=== PATIENT | female | born 1990 | race Caucasian/White ===

== ENCOUNTER 2016-10-22 12:30 | Emergency (ER) | payer OTHER ==
[~2016-10-22] VITALS: Ht 162.6 cm; Wt 95.3 kg
[2016-10-22 13:02] LABS: BILIRUBIN,URINE NEGATIVE (NEG); GLUCOSE,URINE NEGATIVE (NEG); NITRITE,URINE NEGATIVE (NEG); PROTEIN,URINE NEGATIVE (NEG-TRACE)
[2016-10-22 13:11] LABS: BACTERIA,URINE 0 /HPF (0-FEW); RBC,URINE TNTC /HPF (0-2); SQUAMOUS EPITHELIAL CELL,UR FEW /LPF
--- NOTE | 2016-10-22 13:23 | PHYS DOC ---
Past Medical History Past Medical History: No Pertinent History Past Surgical History: Other Additional Past Surgical Histo: wisdom teeth removed Alcohol Use: None Drug Use: None Adult General Chief Complaint Chief Complaint: VAGINAL BLEEDING HPI HPI Patient is a 26 year old female presenting to the emergency department for evaluation of vaginal bleeding in early . She is G1 approximate 7 weeks' based off dates and has had spotting for the past several days and her OB told her to come to the emergency department. She is following at [facility]. She denies any pain dizziness fevers chills nausea vomiting or other systemic symptoms. She thinks her blood type is B+. Review of Systems Review of Systems Constitutional: Denies fever or chills [] GI: Denies abdominal pain, nausea, vomiting, bloody stools or diarrhea [] : Denies dysuria or hematuria [] Allergies Allergies Allergies Coded Allergies Type Severity Reaction Last Updated Verified Sulfa (Sulfonamide Antibiotics) Allergy Intermediate hives 07/28/15 Yes Physical Exam Physical Exam Constitutional: Well developed, well nourished, no acute distress, non-toxic appearance. [] Cardiovascular:Heart rate regular rhythm, no murmur [] Lungs & Thorax: Bilateral breath sounds clear to auscultation [] Abdomen: Bowel sounds normal, soft, no tenderness, no masses, no pulsatile masses. [employer] exam deferred as patient is getting pelvic ultrasound. Current Patient Data Vital Signs Vital Signs Date Time Temp Pulse Resp B/P (MAP) Pulse Ox O2 Delivery O2 Flow Rate FiO2 10/22/16 13:58 68 18 132/81 (98) 100 Room Air 10/22/16 12:58 98.6 98.6 Lab Values Laboratory Tests Test 10/22/16 11:50 10/22/16 12:40 10/22/16 13:15 POC Urine HCG, Qualitative Hcg positive (Negative) Urine Collection Type Unknown Urine Color Yellow Urine Clarity Clear Urine pH 7.0 Urine Specific [place] 1.015 Urine Protein Negative mg/dL (NEG-TRACE) Urine Glucose (UA) Negative mg/dL (NEG) Urine Ketones (Stick) Negative mg/dL (NEG) Urine Blood Large (NEG) Urine Nitrite Negative (NEG) Urine Bilirubin Negative (NEG) Urine Urobilinogen Dipstick 1.0 mg/dL (0.2 mg/dL) Urine Leukocyte Esterase Trace (NEG) Urine RBC Tntc /HPF (0-2) Urine WBC 1-4 /HPF (0-4) Urine Squamous Epithelial Cells Few /LPF Urine Bacteria 0 /HPF (0-FEW) White Blood Count 8.4 x10^3/uL (4.0-11.0) Red Blood Count 4.47 x10^6/uL (3.50-5.40) Hemoglobin 13.4 g/dL (12.0-15.5) Hematocrit 39.3 % (36.0-47.0) Mean Corpuscular Volume 88 fL (79-100) Mean Corpuscular Hemoglobin 30 pg (25-35) Mean Corpuscular Hemoglobin Concent 34 g/dL (31-37) Red Cell Distribution Width 14.0 % (11.5-14.5) Platelet Count 336 x10^3/uL (140-400) Neutrophils (%) (Auto) 73 % (31-73) Lymphocytes (%) (Auto) 20 % (24-48) L Monocytes (%) (Auto) 6 % (0-9) Eosinophils (%) (Auto) 0 % (0-3) Basophils (%) (Auto) 1 % (0-3) Neutrophils # (Auto) 6.1 x10^3uL (1.8-7.7) Lymphocytes # (Auto) 1.7 x10^3/uL (1.0-4.8) Monocytes # (Auto) 0.5 x10^3/uL (0.0-1.1) Eosinophils # (Auto) 0.0 x10^3/uL (0.0-0.7) Basophils # (Auto) 0.0 x10^3/uL (0.0-0.2) Maternal Serum HCG Beta Subunit 4534 mIU/mL (0-6) H Sodium Level 138 mmol/L (136-145) Potassium Level 3.7 mmol/L (3.5-5.1) Chloride Level 104 mmol/L (98-107) Carbon Dioxide Level 26 mmol/L (21-32) Anion Gap 8 (6-14) Blood Urea Nitrogen 10 mg/dL (7-20) Creatinine 0.8 mg/dL (0.6-1.0) Estimated GFR (Cockcroft-Gault) 87.4 BUN/Creatinine Ratio 13 (6-20) Glucose Level 95 mg/dL (70-99) Calcium Level 9.4 mg/dL (8.5-10.1) Total Bilirubin 0.3 mg/dL (0.2-1.0) Aspartate Amino Transferase (AST) 12 U/L (15-37) L Alanine Aminotransferase (ALT) 18 U/L (14-59) Alkaline Phosphatase 66 U/L (46-116) Total Protein 7.6 g/dL (6.4-8.2) Albumin 3.4 g/dL (3.4-5.0) Albumin/Globulin Ratio 0.8 (1.0-1.7) L Laboratory Tests 10/22/16 13:15 Laboratory Tests 10/22/16 13:15 EKG EKG [] Radiology/Procedures Radiology/Procedures Obstetrical ultrasound, 10/22/2016: History: Vaginal bleeding Transabdominal and transvaginal scans were obtained. The uterus contains a small fluid collection. It contains a rounded cystic structure compatible with a yolk sac. There is an additional tiny 2 to 3 mm echogenic focus suggesting a small pole. Definite cardiac activity is not seen, however, that is not considered to be abnormal at this early stage. The size of this presumed pole suggests a gestational age of 5-6 weeks. No subchorionic hemorrhage is seen. The ovaries are of normal size. There is blood flow in both ovaries. No adnexal mass is evident. No significant free fluid is seen in the pelvis. IMPRESSION: Early intrauterine as described above. DICTATED and SIGNED BY: LESLYE DUNN MD DATE: 10/22/16 7146 Course & Med Decision Making Course & Med Decision Making Will get cold type screening pelvic ultrasound and then reassess. Patient looks well with normal vital signs and has benign workup such she'll be discharged with threatened miscarriage. Patient aware and agreeable with plan and discharged in stable condition. Dragon Disclaimer Dragon Disclaimer This electronic medical record was generated, in whole or in part, using a voice recognition dictation system. Departure Departure Impression: Primary Impression: Threatened Disposition: 01 HOME, SELF-CARE Condition: GOOD Referrals: LISA SARABIA MD (PCP) Patient Instructions: Threatened Miscarriage Additional Instructions: Obstetrical ultrasound, 10/22/2016: History: Vaginal bleeding Transabdominal and transvaginal scans were obtained. The uterus contains a small fluid collection. It contains a rounded cystic structure compatible with a yolk sac. There is an additional tiny 2 to 3 mm echogenic focus suggesting a small pole. Definite cardiac activity is not seen, however, that is not considered to be abnormal at this early stage. The size of this presumed pole suggests a gestational age of 5-6 weeks. No subchorionic hemorrhage is seen. The ovaries are of normal size. There is blood flow in both ovaries. No adnexal mass is evident. No significant free fluid is seen in the pelvis. IMPRESSION: Early intrauterine as described above. DICTATED and SIGNED BY: LESLYE DUNN MD DATE: 10/22/16 1406 HCG = [id number] VANESSA BARBER DO October 22, 2016 13:23
[2016-10-22 13:44] LABS: BASO % 1 % (0-3); EOS % 0 % (0-3); HEMATOCRIT 39.3 % (36.0-47.0); HEMOGLOBIN 13.4 g/dL (12.0-15.5); LYMPH # 1.7 x10^3/uL (1.0-4.8); LYMPH % 20 % (24-48); MEAN CORPUSCULAR HEMOGLOBIN 30 pg (25-35); MEAN CORPUSCULAR HGB CONC 34 g/dL (31-37); MEAN CORPUSCULAR VOLUME 88 fL (79-100); MONO % 6 % (0-9); NEUT % 73 % (31-73); PLATELET COUNT 336 x10^3/uL (140-400); RED BLOOD COUNT 4.47 x10^6/uL (3.50-5.40); WHITE BLOOD COUNT 8.4 x10^3/uL (4.0-11.0)
[2016-10-22 13:58] VITALS: BP 132/81
[2016-10-22 14:04] LABS: CALCIUM 9.4 mg/dL (8.5-10.1); CREATININE 0.8 mg/dL (0.6-1.0); GFR 87.4; POTASSIUM 3.7 mmol/L (3.5-5.1)
[2016-10-22 14:11] LABS: ALBUMIN 3.4 g/dL (3.4-5.0); ALBUMIN/GLOBULIN RATIO 0.8 (1.0-1.7); TOTAL BILIRUBIN 0.3 mg/dL (0.2-1.0); TOTAL PROTEIN 7.6 g/dL (6.4-8.2)
--- NOTE | 2016-10-22 14:12 | RAD ---
Obstetrical ultrasound, 10/22/2016: History: Vaginal bleeding Transabdominal and transvaginal scans were obtained. The uterus contains a small fluid collection. It contains a rounded cystic structure compatible with a yolk sac. There is an additional tiny 2 to 3 mm echogenic focus suggesting a small pole. Definite cardiac activity is not seen, however, that is not considered to be abnormal at this early stage. The size of this presumed pole suggests a gestational age of 5-6 weeks. No subchorionic hemorrhage is seen. The ovaries are of normal size. There is blood flow in both ovaries. No adnexal mass is evident. No significant free fluid is seen in the pelvis. IMPRESSION: Early intrauterine as described above.
== END 2016-10-22 14:50 | disposition home or self-care (01) ==
LOC: ER 12:30
DX: O20.0 Threatened abortion (principal); Z3A.01 Less than 8 weeks gestation of pregnancy; Z88.2 Allergy status to sulfonamides
CPT/HCPCS: 36415; 76801; 76817; 80053; 81001; 81025; 84702; 85027; 86850; 86900; 86901; 87086; 99285-25